=== PATIENT | female | born 1980 | race Caucasian/White ===

== ENCOUNTER 2024-10-19 08:18 | Day surgery (SDC) | payer BC, SELFPAY ==
[2024-10-09 10:41] VITALS: BMI 36.0
[2024-10-09 11:14] LABS: % Basophils 0.7 % (0-2); % Eosinophils 4.2 % (0-6); % Immature Granulocytes 0.3 % (0-0.5); % Lymphocytes 22.9 % (20.5-51.1); % Monocytes 8.2 % (1.7-9.3); % Neutrophils 63.7 % (42.2-75.2); Absolute Eosinophils 0.3 10^3/uL (0-0.7); Absolute Lymphocytes 1.4 10^3/uL (1.2-3.4); Absolute Monocytes 0.5 10^3/uL (0.1-0.6); Absolute Neutrophils 3.9 10^3/uL (1.4-6.5); Hematocrit 38.7 % (37.0-47.0); Hemoglobin 13.3 g/dL (12.0-16.0); Mean Corp Hgb Conc. 34.4 g/dL (33.0-37.0); Mean Corpuscular Hgb 30.5 pg (27.0-31.0); Mean Corpuscular Volume 88.8 fL (81.0-99.0); Mean Platelet Volume 9.9 fL (7.4-10.4); Nucleated Red Blood Cells % 0 %; Platelet Count 243 10^3/uL (130-400); Red Blood Cell Count 4.36 10^6/uL (4.20-5.40); Red Cell Dist. Width 12.3 % (11.5-14.5); White Blood Cell Count 6.1 10^3/uL (4.8-10.8)
[2024-10-09 11:18] LABS: INR 1.19; PT 15.4 Sec (11.4-14.6)
[2024-10-09 11:23] LABS: HCG, Urine Qualitative Screen Negative
[2024-10-09 11:34] LABS: ALT (SGPT) 12 U/L (0-35); AST (SGOT) 14 U/L (14-36); Albumin 4.4 g/dl (3.5-5.0); Alkaline Phosphatase 53 U/L (38-126); Blood Urea Nitrogen 14 mg/dl (7-17); Calcium 9.1 mg/dl (8.4-10.2); Carbon Dioxide 26 mmol/L (22-30); Chloride 108 mmol/L (98-107); Estimated Creatinine Clearance 123 ml/min; Glucose 92 mg/dl (70-99); Magnesium 2.2 mg/dl (1.6-2.3); Potassium 4.5 mmol/L (3.5-5.1); Sodium 140 mmol/L (135-145); Total Bilirubin 1.1 mg/dl (0.2-1.3); Total Protein 6.9 g/dl (6.3-8.2); eGFR > 60.00
--- NOTE | 2024-10-15 12:42 | OID.L.PAT ---
Pulmonary Nodule Pat Letter
- -
10/15/24
SOO BARKER
[address] [facility]
[place] [address]
Deameng VANN,
A pulmonary nodule was seen on an imaging study done by [facility] Radiology. This was reviewed by the [facility] Pulmonary Nodule Advisory Board and the following recommendation was made:
Recommendation: Follow up CT Chest in 12 months.
If you have any questions, please do not hesitate to contact your primary care physician. If you are in need of a Physician, you can go to [email or web address] and click on 'Find a Provider'. Type 'Family Medicine' in the search.
Oncology Nurse Navigator
[facility]
[phone]
--- NOTE | 2024-10-15 12:43 | OID.L.REC ---
Pulmonary Nodule Follow Up
- Recommendation
10/15/24
Pulmonary Nodule Review Recommendations
Your patient, SOO BARKER, had a pulmonary nodule seen on an imaging study done on 10/09/24 in the [facility] Radiology Department. This was reviewed by the [facility] Pulmonary Nodule Advisory Board
and the following recommendation was made:
Recommendation: Follow up CT Chest in 12 months.
If you have any questions, please do not hesitate to contact us.
Sincerely,
Oncology Nurse Navigator
[facility]
[phone]
[2024-10-19] VITALS (16 sets, daily range): BP systolic 106–127; BP diastolic 62–83; BMI 37.0
[2024-10-19 09:41] LABS: HCG, Urine Qualitative Screen Negative
--- NOTE | 2024-10-19 09:51 | ITS.CL.ABL ---
Maintenance Custodian - Ablation
Ablation
Procedure Report:
Primary Automotive General Manager: Dr Jairo Olsen
Procedure Date: 10/19/2024
Patient History:
Patient is a pleasant 44-year-old female with a past medical history significant for paroxysmal atrial flutter status post CTI RF 2007 and 2011, paroxysmal atrial tachycardia with ablation 2011 and 2020, hypertension, obesity, and symptomatic
paroxysmal atrial fibrillation.
See H&P for complete details.
Indication:
Symptomatic paroxysmal atrial fibrillation
Symptomatic paroxysmal atrial flutter
Symptomatic paroxysmal atrial tachycardia
Arrhythmia Specific History:
Prior Medical Therapies for Rate and Rhythm Control:
X Beta-tena
X Calcium channel-tena
[ ] Amiodarone
[ ] Dronederone
[ ] Sotalol
[ ] Flecainide
[ ] Dofetilide
[ ] Options limited by bradycardia
[ ] Options limited by comorbid renal disease
Prior Procedural Therapies for AF/AFL:
[ ] Cardioversion
[ ] Pulmonary Vein Isolation
[ ] Posterior Wall Isolation
X Additional lines (Specify) - CTI RFA ; PAT RFA (RA only)
[ ] Surgical Tomlinson-MAZE or PVI (Specify)
Procedure Performed:
X AF ablation procedure (08323) -- includes LA/CS pacing, trans-septal, 3D mapping, + ICE
[ ] +IV drug (20130)
X +Other Arrhythmia (99878) - micro-rentry AT/AFL
X +Other AF Line/ablation (42067) - CTI RFA/PFA (reconnection at CTI line)
Risks and expected recovery has been explained in detail. Alternative options have been explored, and in a shared-decision making fashion we have decided that this was the most appropriate procedure.
Method
NPO status confirmed. Grounding pad applied. Defibrillator pads applied. Continuous surface ECG, pulse oximetry, and blood pressure were monitored. Procedure was performed under general anesthesia, with anesthesia services.
Both groins were clipped, prepped with Chloraprep, and draped in sterile fashion. Time out was called. Local anesthesia administered with bupivacaine. The right femoral vein was accessed for catheter placement, using ultrasound guidance (images
saved to record), micro-puncture needle/wire, and modified seldinger technique. 3 sheaths were placed. The following catheters were used:
[ ] Tacticath SE (D/F Curve) ablation catheter
X Viewflex 9Fr ICE catheter
X Inquiry decapolar 6Fr diagnostic catheter
[ ] CRD Hex 6Fr
[ ] Arctic Front Advance Cryoballoon ([ ]28mm[ ]23mm)
[ ] Achieve Advance mapping catheter ([ ]15mm[ ]20mm)
[ ] FlexCath Contour 10 Fr with PulseSelect PFA Catheter
X Agilis 11.5 Fr Steerable Sheath
X Sphere-9 Ablation catheter
[ ] Advisor HD Grid Mapping Catheter, SE
[ ] AcusKneoWorld AcuNav 8 Fr ICE catheter
[ ]Other: [ ]
Intracardiac ultrasound (ICE) was carefully advanced into the right atrium to guide sheath placement over a J-wire, catheter placement, guide trans-septal puncture, identify potential complications, identify anatomic structures and ensure proper
contact between ablation catheter and tissue. A trace pericardial effusion was noted at baseline which remained unchanged throughout procedure and at case completion.
Heparin was given prior to trans-septal puncture. Heparin was given to achieve and maintain a target ACT of 300-400 seconds throughout the procedure.
Trans-septal access was performed under ICE guidance. The trans-septal puncture was performed with a SafeSept wire through a Brockenbrough needle assembly through the steerable sheath. The wire was visualized as it entered the LSPV and system
advanced under ICE guidance and fluoroscopy into the LA. The Brockenbrough needle assembly, SafeSept wire and sheath dilator were removed under negative pressure. LA pressure was measured and recorded.
ICE and 3D mapping was performed to identify relevant cardiac structures. A careful 3D map was created to assess for regions of low-voltage and abnormal electrogram signals using Sphere-9 catheter. Additional mapping was performed as outlined below.
Prior to ablation, glycopyrrolate was provided. Sphere 9 catheter was advanced into the left atrium. Electroanatomic mapping was performed using the Sphere 9 catheter. Pulmonary vein isolation was performed using pulsed field ablation in a
circumferential manner. Contact was visualized via EAM, ICE, fluoroscopy, and EGM signals. During ablation of the right sided veins, patient spontaneously entered a concentrically activated tachycardia with cycle length 320-340 ms. Pulmonary vein
isolation was completed on the right-sided veins. High-output pacing was performed from left inferior and superior veins when patient had been in sinus rhythm which demonstrated entrance and exit block. High output pacing from the right superior
and inferior veins while in tachycardia also demonstrated entrance and exit block. Electroanatomic mapping was then performed demonstrating activation coming from the right atrium. Entrainment from distal and proximal CS also noted that left
atrium was not participating in the arrhythmia. Sphere 9 was removed and Agilis was returned to the right atrium. Sphere 9 was introduced once more and electroanatomic mapping was performed. High output pacing was attempted from the RV for
overdrive ventricular pacing to better understand the mechanism of arrhythmia however no evidence of VA conduction was noted with high output ventricular pacing. Patient was noted to have focal breakthrough along the CTI line. Ablation was
performed using RF near the annulus and PFA at the posterior portion of the CTI line near the IVC RA junction. Block was noted along the CTI however tachycardia did not change with modification of the CTI. Continue electroanatomic mapping was
performed within the right atrium demonstrating focal breakout at the anterior portion of the SVC RA junction. Given proximity to sinoatrial node, patient was cardioverted into sinus rhythm. Sinus rhythm/SA node was mapped which yielded a focal
spot of the lateral portion of the SVC/RA junction. Placed in the catheter in the anterior anteroseptal portion of the SVC/RA junction nearest focal breakthrough, ablation was performed with pulsed field ablation. Additional ablation was performed
in the area of the ousmane terminalis in the posterior portion of the RA with small focal breakthrough. Following completion of ablation in these regions, electrophysiology study was performed and patient rendered noninducible with sustained
arrhythmia. No evidence of atrial tachycardia, atrial flutter or other arrhythmias. Patient had intact SA and AV zachariah conduction.
Catheter and sheath were removed from the left atrium and post-ablation intracardiac echo evaluation was consistent with pre-ablation with no changes and no change to trace pericardial effusion and there is no left atrial thrombus or left ventricle
thrombus seen. Electrophysiology study was performed. Hemostasis was obtained with Vascade for each sheath and with manual pressure. Protamine was used for reversal.
Estimated Blood Loss
5 mL
Complications
None
Fluoroscopy: 4.4 minutes; 40.41 mGy; DAP 4.16
LA Pressure: Pre 6 mmHg, post 9 mmHg (taken during tachycardia)
Baseline Intervals:
Rhythm: SR
AR: 131 ms
QRS: 85 ms
QT: 461 ms
QTc: 457 ms
A-A: 1016 ms
R-R: 1016 ms
Post-Procedure Intervals:
AR: 145 ms
QRS: 78 ms
QT: 471 ms
QTc: 491 ms
A-A: 921 ms
R-R: 921 ms
AVWB: 450 ms
AVNERP: 600/390 ms
AERP: 600/240 ms
Recommendations
- Bedrest with straight-leg precautions as ordered
- Anticipate same day discharge if patient meeting clinical metrics
- Resume home medications as indicated
- Ok to resume anticoagulation tonight if patient and groin sites stable
- PPI daily for 30 days
- Plan for follow-up in office as scheduled
Ervin Marie, , FACC, RS
Clinical Cardiac Regional Director
cc: Dr Jairo Olsen
[2024-10-19 11:12] LABS: ACT-LR - POC 297 Seconds (116-155)
[2024-10-19 11:29] LABS: ACT-LR - POC 356 Seconds (116-155)
[2024-10-19 11:56] LABS: ACT-LR - POC 332 Seconds (116-155)
[2024-10-19 12:28] LABS: ACT-LR - POC 324 Seconds (116-155)
[2024-10-19 13:02] LABS: ACT-LR - POC 353 Seconds (116-155)
[2024-10-19 13:12] LABS: ACT-LR - POC 128 Seconds (116-155)
[2024-10-19] MEDS: PROTONIX 40 MG PO (14:55)
[2024-10-19] MEDS: TYLENOL 650 MG PO (14:55)
[2024-10-19] MEDS: TORADOL 15 MG IV (15:24)
[2024-10-19] MEDS: MORPHINE SULFATE 2 MG IV (16:27)
--- NOTE | 2024-10-19 16:49 | W.PN.UPDATE ---
Addendum entered and electronically signed by VICENTA Armstrong 10/19/24 17:50:
Echo w/nml LVSF, no WMA, EF 55-60%, no pericardial or pleural effusion.
Pain is persistent, about 4-6/10.
Will admit with extra strength acetaminophen as well as tramadol for breakthrough.
Discussed with Dr. Marie.
Original Note:
Update Note
Progress Note Update
Post PFA, pt complained of moderate 6-7/10 chest discomfort radiating across her chest, no worse with inspiration, somewhat reproducible on the left lateral sternal border. No relief from tylenol, protonix, toradol, or positioning out of bed. Repeat
EKG are unchanged from prior EKGs, remains in NSR w/anteroseptal TWI as before, no acute changes. Bedside echo ordered as well as morphine.
Right groin site is stable with no ht/bleeding, oob to chair/bathroom and urinating without difficulty. Eliquis to be resumed this evening, as well as a 30 day course of protonix.
Differentials include pericardial effusion, pericarditis, musculoskeletal chest discomfort.
Will discuss w/Dr. Marie.
[2024-10-19] MEDS: LIDOCAINE 4% PATCH 1 PATCH TOPICAL (17:50)
[2024-10-19] MEDS: COLACE 100 MG PO (19:53)
[2024-10-19] MEDS: TYLENOL 1000 MG PO (19:53)
[2024-10-19] MEDS: ELIQUIS 5 MG PO (19:53)
--- NOTE | 2024-10-19 21:00 | PTCARENOTE ---
Patient received at change of shift out of bed to the chair. 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 Scheduled acetaminophen administered, see MAR. Discussed available pain management options. Patient
is sinus rhythm on telemetry. Oxygen saturation 95% on room air. Discussed with patient to please call if her pain changes or gets worse. Right groin site with gauze and tegaderm C/D/I, pedal pulse palpable. Plan of care discussed with patient. Call
traylor within reach. Care ongoing.
[2024-10-20 03:10] VITALS: BP 103/60
[2024-10-20 03:11] VITALS: BP 103/60
[2024-10-20] MEDS: TYLENOL 1000 MG PO ×2 (03:16→09:01)
[2024-10-20 03:54] LABS: Hematocrit 33.8 % (37.0-47.0); Hemoglobin 11.9 g/dL (12.0-16.0); Mean Corp Hgb Conc. 35.2 g/dL (33.0-37.0); Mean Corpuscular Hgb 31.4 pg (27.0-31.0); Mean Corpuscular Volume 89.2 fL (81.0-99.0); Mean Platelet Volume 10.3 fL (7.4-10.4); Platelet Count 232 10^3/uL (130-400); Red Blood Cell Count 3.79 10^6/uL (4.20-5.40); Red Cell Dist. Width 12.2 % (11.5-14.5); White Blood Cell Count 7.9 10^3/uL (4.8-10.8)
[2024-10-20 04:17] LABS: Blood Urea Nitrogen 15 mg/dl (7-17); Calcium 8.2 mg/dl (8.4-10.2); Carbon Dioxide 22 mmol/L (22-30); Chloride 109 mmol/L (98-107); Estimated Creatinine Clearance > 125 ml/min; Glucose 166 mg/dl (70-99); Magnesium 2.2 mg/dl (1.6-2.3); Potassium 4.4 mmol/L (3.5-5.1); Sodium 137 mmol/L (135-145); eGFR > 60.00
[2024-10-20] MEDS: SYNTHROID 75 MCG PO (06:12)
--- NOTE | 2024-10-20 08:17 | W.PN.CARDCBS ---
Addendum entered and electronically signed by Hemanth Conner DO 10/20/24 09:16:
I saw and examined the patient.
The Processing Mgr's note was reviewed and I agree with the note.
Comment:
Plan:
Stable for d/c
Remains sinus
Cont Eliquis, metoprolol and diltiazem
Outpatient cardiology follow-up has been arranged
Original Note:
Today's Communication / Plan
-
Continue Eliquis, metoprolol and diltiazem
Outpatient cardiology follow-up has been arranged
Stable for discharge
Impression / Plan
-
Dictated discharge summary #[id number]
PCP: Venkata Alaniz
Brush Or Broom Cutter: Jairo Olsen
Tape Control Skin Or Spar Mill Operator: Ervin Marie
Impression:
Presented 10/19/2024 for elective PVI for symptomatic atrial arrhythmias
Status post pulsed field PVI ablation 10/19/2024
Chest pain postprocedure
Paroxysmal atrial fibrillation/flutter CTI RF 2007, 2011
Paroxysmal atrial tachycardia, A. tach ablation 2011 and 2020
Chronic anticoagulation on Eliquis
Hypothyroidism
Hypertension
Obesity
Echo 10/19/2024 (limited study): EF 55 to 60%. Normal pericardium without effusion.
- Presented for elective pulsed field PVI ablation 10/19/2024 for atrial arrhythmias. Patient did receive 1 cardioversion shock postprocedure.
- Postprocedure patient complained of chest discomfort rating it across to her chest no worse with inspiration reproducible on lateral left sternal border.
- EKG showed sinus rhythm with anteroseptal T wave abnormalities unchanged from prior tracings.
- Bedside limited echo showed preserved ejection fraction with normal pericardium without effusion
- Patient reports pain significantly improved. Lidoderm patch seem to help the most. She has been able to ambulate around the unit without worsening pain.
- Vital signs stable
- Review of telemetry patient remains in sinus rhythm.
- EKG sinus rhythm without ischemic changes.
- Right groin clean dry intact without evidence of hematoma or ecchymosis. +2 femoral pulse
- Continue diltiazem and metoprolol
- Will discharge home on Protonix for 30 days
- Outpatient cardiology follow-up has been arranged
- Patient stable for discharge
HPI 10/20/2024:
Patient is a pleasant 44-year-old female with a past medical history significant for paroxysmal atrial flutter status post CTI RF 2007 and 2011, paroxysmal atrial tachycardia with ablation 2011 and 2020, hypertension, obesity, and symptomatic
paroxysmal atrial fibrillation.
Progress Note - Brush Or Broom Cutter
Subjective
Date of Service: October 20, 2024
Patient reports chest pain pain significantly improved. Lidoderm patch seem to help the most. She has been able to ambulate around the unit without worsening pain.
Objective
Labs:
10/20/24 03:17
10/20/24 03:17
Labs
Hgb 11.9 g/dL (12.0-16.0) L 10/20/24 03:17
Hct 33.8 % (37.0-47.0) L 10/20/24 03:17
Plt Count 232 10^3/uL (130-400) 10/20/24 03:17
PT 15.4 Sec (11.4-14.6) H 10/09/24 10:48
INR 1.19 10/09/24 10:48
Sodium 137 mmol/L (135-145) 10/20/24 03:17
Potassium 4.4 mmol/L (3.5-5.1) 10/20/24 03:17
BUN 15 mg/dl (7-17) 10/20/24 03:17
Creatinine 0.6 mg/dL (0.6-1.0) 10/20/24 03:17
Glucose 166 mg/dl (70-99) H 10/20/24 03:17
Vital Signs and I&O:
Vital Signs
Temp Pulse Resp BP Pulse Ox
98.0 F 98 14 103/60 95
10/20/24 03:10 10/20/24 06:00 10/20/24 03:10 10/20/24 03:11 10/20/24 03:11
Vital Signs
Temp Pulse Resp BP Pulse Ox
98.0 F 98 14 103/60 95
10/20/24 03:10 10/20/24 06:00 10/20/24 03:10 10/20/24 03:11 10/20/24 03:11
Intake & Output
10/18/24 10/19/24 10/20/24 10/21/24
06:59 06:59 06:59 06:59
Intake Total 1690 / 1690
Balance 1690 / 1690
Physical Exam
Physical Exam
GEN: No distress, awake, Ox3
HEENT: supple, anicteric, mmm
LUNGS: CTA, no wheezes/rales
CV: Reg, S1/S2, no murmur, rub or gallop
ABD: soft, BS+, NT/ND
EXT: No edema, clubbing or cyanosis; right groin clean dry intact without hematoma/ecchymosis, +2 femoral pulse
NEURO: Gross non-focal
SKIN: No rash, warm, dry, pink
--- NOTE | 2024-10-20 08:54 | W.DS.TRANS ---
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
-
Discharge Instructions:
Sleep Apnea Risk Low
Discharge Diagnosis/Procedures Atrial tachycardia, s/p ablation
Diet Low Cholesterol
Driving Restrictions No driving for 24 hours
Instructions:
Stand-Alone Forms: DC Instructions- Cath/EP Lab
Changes to Home Medications: No
Discharge Medications:
DC Medications w/original date entered in [facility]
levothyroxine 75 mcg tablet 75 mcg PO DAILY 03/18/21
acetaminophen 325 mg tablet (Tylenol) 650 mg PO Q4H PRN pain 10/19/24
apixaban 5 mg tablet (Eliquis) 5 mg PO BID 10/19/24
diltiazem HCl 240 mg capsule,24 hr,extended release 240 mg PO DAILY 10/19/24
docusate sodium 100 mg capsule (Colace) 100 mg PO BID 10/19/24
loratadine 10 mg tablet 10 mg PO DAILY PRN allergies 10/19/24
magnesium glycinate 118 mg PO DAILY 10/19/24
metoprolol succinate 25 mg tablet,extended release 24 hr 25 mg PO DAILY 10/19/24
pantoprazole 40 mg tablet,delayed release (Protonix) 40 mg PO DAILY #30 tabs 10/19/24
semaglutide 1 mg/dose (4 mg/3 mL) subcutaneous pen injector (Ozempic) 1 mg SC QWEEK 10/19/24
Home Medication Changes
Pending Results: No
Total time spent discharging patient (in min): 35
[2024-10-20] MEDS: CARDIZEM CD 240 MG PO (09:01)
[2024-10-20] MEDS: COLACE 100 MG PO (09:01)
[2024-10-20] MEDS: ELIQUIS 5 MG PO (09:01)
[2024-10-20] MEDS: TOPROL XL 25 MG PO (09:01)
[2024-10-20] MEDS: LIDOCAINE 4% PATCH 1 PATCH TOPICAL (09:02)
--- NOTE | 2024-10-20 11:16 | PTCARENOTE ---
~9109-2005: Handoff report received from effie SALAS. Pt OOB in chair. AOx4, NSR 60s-70s on tele, SBP 110s-120s, RA satting >90%. pt does not complain of pain at this time, scheduled lidocaine patch placed on L chest which patient states 'it
really helped my pain yesterday.' R groin site dressing CDI and site is soft with no bruising or hematoma noted. All needs met at this time, call traylor within reach. Disharge paperwork completed per order. Discharge instructions gone over with
patient, all questions answered. Patient wheeled down to lobby in stable condition via wheelchair.
== END 2024-10-20 11:13 | disposition home or self-care (01) ==
LOC: CATH 08:18
PROVIDERS: Nurse Practitioner; ATTENDING PHYSICIAN Internal Medicine Cardiovascular Disease; FAMILY PHYSICIAN Internal Medicine; OTHER PHYSICIAN Internal Medicine Cardiovascular Disease
DX: I48.0 Paroxysmal atrial fibrillation (principal); I47.19 Other supraventricular tachycardia; I48.92 Unspecified atrial flutter; E03.9 Hypothyroidism, unspecified; E66.9 Obesity, unspecified; I10 Essential (primary) hypertension; Z79.01 Long term (current) use of anticoagulants; Z79.899 Other long term (current) drug therapy; Z79.890 Hormone replacement therapy; R91.1 Solitary pulmonary nodule
CPT/HCPCS: 93308; C1733; C1766; C1894; 36415; 75572; 80048; 80053; 81025; 83735; 85025; 85027; 85347; 85610; 86850; 86900; 86901; 93005; 93655; 93656; 93657; C1760; Q9967

== ENCOUNTER → 2024-10-26 16:06 | Outpatient (REF) | payer BC, SELFPAY | LOC: DHSLP 16:06 | PROVIDERS: ATTENDING PHYSICIAN Internal Medicine Cardiovascular Disease | DX: G47.19 Other hypersomnia (principal); R06.83 Snoring | CPT/HCPCS: 95800 ==